=== PATIENT | female | born 1945 | race Caucasian/White ===

== ENCOUNTER 2022-06-16 15:22 | Outpatient (REF) | payer OTHER, SELFPAY ==
[2022-06-16 15:38] LABS: Appearance Urine Cloudy (Clear); Bilirubin Urine Negative (Negative); Blood Urine 3+ (Negative); Color Urine Other (Yellow); Glucose Urine 3+ (Negative); Ketones Urine Negative (Negative); Leukocyte Esterase Urine 3+ (Negative); Nitrite Urine Positive (Negative); Protein Urine 1+ (Negative); Specific Gravity Urine 1.025 (1.000-1.030); Urobilinogen Urine 0.2 (0.2-1.0); pH Urine 5.5 (5.0-8.5)
[2022-06-16 15:59] LABS: Bacteria Urine Moderate; RBC Urine >100 (0-2); WBC Urine >100 (0-5)
[2022-06-16 16:00] LABS: Squamous Epithelial Cell Urine Few (None-Few)
== END 2022-06-16 15:23 | disposition home or self-care (01) ==
LOC: NPINS 15:22
PROVIDERS: PCP Family Medicine; Visit Provider Nurse Practitioner Adult Health
DX: Z87.440 Personal history of urinary (tract) infections (principal); Z16.12 Extended spectrum beta lactamase (ESBL) resistance
CPT/HCPCS: 81001; 87086; 87186